=== PATIENT | male | born 1945 | race Caucasian/White ===

== ENCOUNTER → 2019-05-16 | Outpatient (CLI) | payer OTHER, MEDICARE ==
[~2019-05-16] VITALS: Ht 175.3 cm; Wt 68.5 kg
[~2019-05-16] MED LIST: BYDUREON B2 MG/0.85 SUBQ; CALCIUM CARBON500 MG PO; FAMOTIDINE 10 M10 MG PO; HUMALOG100 UNIT/1 SUBQ; INVOKANA100 MG PO; LANTUS SOL100 UNIT/1 SUBQ; LIALDA1.2 GM PO; LIPITOR10 MG PO; MAALOX ADVANCE1 EACH PO; METFORMIN HCL1000 MG PO; OMEPRAZOLE 20 M20 M1 PO
--- NOTE | 2019-05-16 10:08 | P ---
[facility] [place] [address] PROCEDURE REPORT Name: NICOLÁS MEDINA Room #: [facility] [id number] Admission: 05/16/19 Attend Phys: Gavin Petit Discharge: Date of : 47 Report #: [id number] THIS REPORT FOR: //name// CC: Chin Medina MD DATE OF SERVICE: 05/16/2019 PROCEDURES PERFORMED: Upper endoscopy with biopsies and esophageal dilation. HISTORY OF PRESENT ILLNESS: The patient is a 73-year-old male with a history of gastroesophageal reflux disease, who was taking Prilosec on a daily basis with good control, but recently having increased symptoms of heartburn, also complains of mild dysphagia at times. His weight has been stable. No nausea or vomiting. He increased his Prilosec to b.i.d., also added Pepcid and Tums for several weeks with some improvement in his symptoms. No previous history of upper endoscopy. He does have a history of ulcerative colitis. He has undergone multiple colonoscopies over the years. Currently on mesalamine and denies any diarrhea or blood in his stools. Plan is for upper endoscopy. DESCRIPTION OF PROCEDURE: The risks and benefits of the procedure were explained to the patient, those risks including but not limited to bleeding, perforation and the risk of sedation. He understood these risks and gave informed consent. Sedation was given using propofol per anesthesia. Next, using a standard Olympus upper endoscope, the scope was placed in the patient's mouth and advanced under direct vision through the esophagus, stomach and into the second portion of the duodenum. The larynx was normal in appearance. The upper and mid esophagus were normal. In the distal esophagus at the GE junction, grade B erosive esophagitis with a single ulceration was noted, also a possible tiny area of Palacio's esophagus. Biopsies were obtained. No obvious stricture was seen. The gastric fundus was normal. A mild gastritis was noted in the upper body. Biopsies were obtained to rule out H. pylori. The gastric antrum was normal. The pylorus was normal and patent. The duodenal bulb, first and second portion were all normal. The scope was then brought back up into the patient's stomach and a Savary guidewire was inserted through the scope, leaving the guidewire in place as the scope was then withdrawn. Next, a 48-[place]ran Savary dilation of the esophagus was then performed without difficulty. The wire and dilator were removed. The scope was reintroduced into the patient's stomach. There was no evidence of mucosal tear after dilation. The scope was then withdrawn and the procedure terminated. The patient tolerated the procedure well. IMPRESSION: 1. Grade B erosive esophagitis. [facility] [address] [place] [address] PROCEDURE REPORT Name: NICOLÁS MEDINA Room #: REG DAMION Stinson#: [id number] Admission: 05/16/19 Attend Phys: Gavin Petit Discharge: Date of : 47 Report #: [id number] 2. 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 3. Mild gastritis. 4. Otherwise normal upper endoscopy. RECOMMENDATIONS: 1. Await biopsy results. 2. Observe the patient post-dilation. 3. Plan is to switch to different PPI. We will also add Carafate for the next 2 weeks. Thank you for allowing me to participate in his care. <ELECTRONICALLY SIGNED> By: Gavin Vasquez MD 05/16/19 1008 [id number] Gavin Vasquez MD /nt
--- NOTE | 2019-05-17 15:07 | PATH ---
[facility] [address] [address] PATHOLOGY RPT PROCEDURE Name: FELICIANICOLÁS Room #: REG DAMION Stinson#: [id number] Admission: 05/16/19 Date of : 47 Discharge: Report #: [id number] Path Case #: [id number] [facility] Accession Number: [id number] . 01 Material submitted: . PART A: stomach - BX GASTRITIS PART B: esophagus - BX DISTAL ESOPHAGUS. Modifiers: distal . 01 Clinical history: . Pre-op diagnosis: Weight loss, heartburn Post-op diagnosis: Mild gastritis, erosive esophagitis, possible Palacio's A. R/O H. pylori B. R/O Palacio's . 02 Diagnosis: A. Gastric mucosa, gastritis R/O H. pylori, endoscopic biopsy: - Mild chronic active gastritis. - Negative for intestinal metaplasia or atrophy. - Negative for Helicobacter pylori (properly controlled immunohistochemical stain performed). . B. Gastroesophageal mucosa, distal esophagus R/O Palacio's, endoscopic biopsy: - Mild to moderate active esophagitis. - Negative for intestinal metaplasia or dysplasia. (IUV:pavan; 05/17/2019) QMS 05/17/2019 1156 Local . 02 Electronically signed: . Yamile Magana MD, Pathologist NPI- [id number] . 01 Gross description: . A. The specimen is received in formalin, labeled "Nicolás Medina, biopsy gastritis, R/O H. pylori". Received are two segments of pale ramirez soft tissue ranging in size from 0.3 to 0.4 cm in maximum dimensions. The specimen is submitted entirely in cassette A1. . B. The specimen is received in formalin, labeled "Nicolás Medina, biopsy distal esophagus, R/O Palacio's". Received are two segments of pale ramirez soft tissue measuring 0.3 cm each in maximum dimensions. The specimen is submitted entirely in cassette B1. (CAA; 05/16/2019) QAC/QA 05/16/2019 1853 Local . 02 Pathologist provided ICD-10: K29.50, K20.9 [place] [address] PATHOLOGY RPT PROCEDURE Name: NICOLÁS MEDINA Room #: REG DAMION Stinson#: [id number] Admission: 05/16/19 Date of : 47 Discharge: Report #: [id number] Path Case #: [id number] . 02 [facility] . [id number], [id number] Specimen Comment: A courtesy copy of this report has been sent to [phone], [phone] Specimen Comment: [phone] Specimen Comment: Report sent to and Performed at: [address], [place] [id number] MD Edmund Alvarez MD Phone: [phone] Performed at: [address] [id number] MD Yamile Magana MD Phone: [phone]
== END | disposition home or self-care (01) ==
LOC: GI 07:04
DX: K29.50 Unspecified chronic gastritis without bleeding (principal); K21.0 Gastro-esophageal reflux disease with esophagitis; R13.19 Other dysphagia; E78.5 Hyperlipidemia, unspecified; E11.9 Type 2 diabetes mellitus without complications; Z87.19 Personal history of other diseases of the digestive system; Z98.890 Other specified postprocedural states; Z79.899 Other long term (current) drug therapy; Z79.4 Long term (current) use of insulin
CPT/HCPCS: 62110; 62900